=== PATIENT | female | born 1965 | race American Indian/Alaskan Native ===

== ENCOUNTER 2022-07-24 06:26 | Emergency (ER) | payer BC ==
[2022-07-24 06:35] VITALS: BP 163/93; PULSE 85; RESP 18; TEMP 97.6; BMI 27.3
== END 2022-07-24 10:45 | disposition home or self-care (01) ==
LOC: JER 06:26
DX: M79.662 Pain in left lower leg (principal); R22.42 Localized swelling, mass and lump, left lower limb
CPT/HCPCS: 93971-TC; 99284-25